=== PATIENT | female | born 1965 | race Caucasian/White ===

== ENCOUNTER → 2016-08-01 | Outpatient (CLI) | payer OTHER ==
[~2016-08-01] MED LIST: ALBUTEROL17 GM; LIPITOR PO; NO MEDICATIONS; NORVASC2.5 MG PO; PREDNISONE PO
--- NOTE | ~2016-08-01 | MY11 ---
[facility] A Service of [facility] RADIOLOGY TEXT RESULTS PATIENT: ELDA MAYO LOCATION: [facility] : 61 UNIT #: [id number] AGE: [address]: Yessenia Lopez MD SEX: F ORDER DR: [id number] [place] [id number] O MR#: [id number] Acc #: [id number] NAME: ELDA MAYO : 1965 SEX: F STUDY DATE/TIME: 08/01/2016 13:33 UNIT: [facility] ROOM: STUDY DESCRIPTION: MY Mammogram Screening Dig José Manuel Attending Physician: Yessenia Lopez M.D. Referring Physician: Yessenia Lopez M.D. Ordering Physician: Yessenia Lopez M.D. Primary Care Physician: Yessenia Lopez M.D. MEDICAL IMAGING REPORT This report is preliminary unless electronic signature is present. EXAM Digital screening mammogram, 08/01/2016, [facility]. HISTORY 51-year-old woman no risk elevation. Annual screen. COMPARISON Mammograms date to 10/27/2007 with most recent 01/05/2015. Previous diagnostic right breast evaluation with right breast ultrasound. TECHNIQUE Digital imaging of each breast was completed utilizing screening protocol. Review includes FDA-approved CAD device. FINDINGS Breast parenchyma is partially fatty replaced with residual fibroglandular opacities projecting upper outer quadrants bilaterally. Small nodule projecting inner hemisphere right breast subareolar location is again noted. It is slightly larger. It remains well circumscribed with lobulation noted. Small cyst cluster seems most likely. I see no suspicious mass characteristics. There are no microcalcifications and no architectural deformity. IMPRESSION Benign mammogram. Annual screening recommended. Patients over the age of 40 are entered into a reminder system with target due date for the next mammogram. A result letter will also be sent to the patient. BIRADS: 2 Benign finding. [facility] A Service of [facility] RADIOLOGY TEXT RESULTS PATIENT: ELDA MAYO LOCATION: [facility] : 61 UNIT #: [id number] AGE: [address]: Yessenia Lopez MD SEX: F ORDER DR: Dictated by... Jacek Moon M.D. THIS IS AN ELECTRONICALLY VERIFIED REPORT Jacek Moon M.D. at 08/02/2016 8:06 AM YAMIL/pepe TD: 08/01/2016 15:57 JOB #: [id number] MEDICAL IMAGING REPORT Page 1 of 1
== END | disposition home or self-care (01) ==
LOC: SMAM 12:56
DX: Z12.31 Encounter for screening mammogram for malignant neoplasm of breast (principal)
CPT/HCPCS: G0202